=== PATIENT | male | born 1960 | race Caucasian/White ===

== ENCOUNTER → 2016-09-18 | Outpatient (CLI) | payer OTHER | END | disposition home or self-care (01) | LOC: LABWHC1 08:59 | PROVIDERS: ATTEND Family Medicine | DX: F10.10 Alcohol abuse, uncomplicated (principal) | CPT/HCPCS: 36415; 84207 ==

== ENCOUNTER → 2016-09-28 | Outpatient (CLI) | payer OTHER ==
--- NOTE | 2016-09-28 09:27 | US ---
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 Alcoholic EXAM MEASUREMENTS: Liver Length: 16.3 cm Gallbladder Wall: 0.2 cm CBD: 0.5 cm Right Kidney: 9.2 x 4.8 x 5.0 cm Pancreas: not seen due to obscured bowel gas Liver: intercostal imaging due to bowel gas . Craniocaudal dimension is 16.25 cm which is minimally prominent over the normal of 15.5 cm. No discrete masses or cysts are evident. No suspicious focal l obulation is evident. Gallbladder: wnl Evidence for sonographic Salgado's sign: no CBD: wnl Right Kidney: wnl IMPRESSION: 1. Essentially unremarkable right upper quadrant abdomen.
== END | disposition home or self-care (01) ==
LOC: RADUSWWP 08:24
PROVIDERS: ATTEND Family Medicine
DX: R16.0 Hepatomegaly, not elsewhere classified (principal)
CPT/HCPCS: 76705

== ENCOUNTER 2017-01-30 17:12 | Emergency (ER) | payer OTHER ==
[2017-01-30 17:30] VITALS: TEMP 98.2
[2017-01-30] MEDS ORDERED: DIPH,PERTUS(ACELL)TETVAC-LF 0.5 ML VIAL IM ONE (18:10)
--- NOTE | 2017-01-30 18:16 | ED ---
Skin/Abscess/FB HPI - General Chief complaint: Skin/Abscess/Foreign Body Stated complaint: fish hook in left thumb Time Seen by Provider: 01/30/17 17:40 Source: patient Mode of arrival: ambulatory Limitations: no limitations - History of Present Illness Initial comments: 56-year-old male complains of fishhook to the left thumb that occurred about 4 hours prior to arrival. Patient states he tried to get him felt that he could not get it. Patient is not sure if his tetanus is up-to-date. He states it is uncomfortable but not a lot of pain he denies any numbness or tingling or loss of sensation. Patient states the bleeding was controlled. Did not clean it very well well. MD complaint: other (fish hook, left thumb) Location: L hand - Related Data Previous Rx's Medication Instructions Recorded Cephalexin [Keflex] 500 mg PO Q8HR #30 cap 01/30/17 Allergies Allergy/AdvReac Type Severity Reaction Status Date / Time No Known Allergies Allergy Verified 01/30/17 17:30 Review of Systems ROS Statement: Those systems with pertinent positive or pertinent negative responses have been documented in the HPI. ROS Other: All systems not noted in ROS Statement are negative. Constitutional: Denies: fever Skin: Reports: other (fish hook left thumb) Past Medical History Past Medical History: GERD/Reflux History of Any Multi-Drug Resistant Organisms: None Reported Past Surgical History: No Surgical Hx Reported Past Psychological History: No Psychological Hx Reported Smoking Status: Former smoker Past Alcohol Use History: Daily Past Drug Use History: None Reported General Exam Limitations: no limitations General appearance: alert, in no apparent distress Head exam: Present: atraumatic, normocephalic, normal inspection Neurological exam: Present: alert, oriented X3, CN II-XII intact Psychiatric exam: Present: normal affect, normal mood Skin exam: Present: warm, dry, normal color. Absent: intact ([place] noted to the left thumb), rash Course Vital Signs 01/30/17 17:27 Temperature 98.2 F Pulse Rate 72 Respiratory 20 Rate Blood Pressure 141/86 O2 Sat by Pulse 98 Oximetry Procedures - Procedures Initial comment: Patient was prepped and draped appropriately 1% lidocaine was locally infused 1 mL to the fishhook area. Patient tolerated it well fishhook was easily removed by pulling the fishhook back out. Bacitracin and dressing was applied. Patient was soaked in Betadine and normal saline prior to procedure. Medical Decision Making - Medical Decision Making Patient will get his tetanus updated along with antibiotics to prevent any infection. Patient to keep area clean dry covered. Follow-up if not improving. Disposition Clinical Impression: Fish hook injury of finger of left hand Disposition: HOME SELF-CARE Condition: Good Instructions: Soft Tissue Foreign Body (ED) Prescriptions: Cephalexin [Keflex] 500 mg PO Q8HR #30 cap Referrals: Duy Mancuso MD [Primary Care Provider] - 1-2 days Time of Disposition: 18:16
[2017-01-30 18:48] VITALS: BP 136/68; PULSE 80; RESP 18
== END 2017-01-30 18:48 | disposition home or self-care (01) ==
LOC: EC 17:12
DX: S60.352A Superficial foreign body of left thumb, initial encounter (principal); W45.8XXA Other foreign body or object entering through skin, initial encounter; W22.8XXA Striking against or struck by other objects, initial encounter; Z23 Encounter for immunization; Z87.891 Personal history of nicotine dependence
CPT/HCPCS: 90715; 99283

== ENCOUNTER → 2020-05-02 | Outpatient (CLI) | payer OTHER ==
--- NOTE | 2020-05-02 22:13 | ECHOS ---
STRESS ECHOCARDIOGRAM LUMASON: @@ Vial INDICATIONS: Chest pain. MEDICATIONS: Losartan, omeprazole. BASELINE HEART RATE: 87 beats per minute BASELINE BLOOD PRESSURE: 135/68 MAXIMUM HEART RATE: 144 beats per minute MAXIMUM BLOOD PRESSURE: 201/78 85% MPHR: 137 100% MPHR: 161 METS: 10.1 MAXIMUM STAGE REACHED: 3 TOTAL EXERCISE TIME: 9 minutes CLINICAL INFORMATION: Baseline EKG revealed normal sinus rhythm without significant ST-T changes. Patient walked for 9 minutes on standard Tevin protocol, achieved a maximal heart rate of 144 beats per minute, which is more than 85% of predicted maximal. Resting heart rate was 87 beats per minute. Resting blood pressure was 135/68. Peak blood pressure was 201/78. By EKG criteria, this is a negative stress test with fair exercise capacity. Baseline echo images revealed normal wall motion and wall thickening of all segments. At peak exercise there was good augmentation of left ventricular wall motion and wall thickening of all segments, suggesting that there is no evidence of stress-induced ischemia on this study. FINAL IMPRESSION: 1. Fair exercise capacity with a negative stress test by EKG criteria. 2. Normal stress echocardiogram without evidence of ischemia. MMODL / IJN: [id number] /
== END | disposition home or self-care (01) ==
LOC: RADNMMAIN 09:56
PROVIDERS: ATTEND Family Medicine
DX: R07.9 Chest pain, unspecified (principal)
CPT/HCPCS: 93351